=== PATIENT | female | born 1945 | race Hispanic/Latino ===

== ENCOUNTER → 2017-10-13 | Outpatient (CLI) | payer MEDICARE, BC ==
--- NOTE | 2017-10-13 12:03 | Diagnostic Imaging Report ---
PROCEDURE:X-RAY ABDOMEN - KUB COMPARISON:Abdomen one view 05/10/2017. INDICATIONS:CALCULUS OF THE KIDNEY FINDINGS: There is a non-obstructed bowel-gas pattern. Punctate calculus projects over the expected region of the interpolar region of the left kidney, stable since previous examination. There are no calcifications projected over the right renal shadow, expected course of the ureters or bladder. Phleboliths are present in the pelvis. There are no acute osseous abnormalities. The lung bases are clear. CONCLUSION: Nonobstructing left nephrolithiasis. Dictated by: Terrence Granados M.D. on 10/13/2017 at 12:05 Electronically approved by: Terrence Granados M.D. on 10/13/2017 at 12:05
== END ==
LOC: RAD 10:36
PROVIDERS: ATTEND Urology
DX: N20.0 Calculus of kidney (principal)
CPT/HCPCS: 74018

== ENCOUNTER 2020-02-13 08:39 | Emergency (ER) | payer MEDICARE, BC ==
[~2020-02-13] VITALS: Ht 167.6 cm; Wt 99.8 kg
--- NOTE | 2020-02-13 08:55 | Emergency Department Note ---
History of Present Illnes History of Present Illness Chief Complaint: Flank Pain History of Present Illness This is a 74 year old female Chief Complaint Comment PATIENT IN FROM [facility] WITH COMPLAINTS OF RIGHT FLANK PAIN STARTING THIS MORNING; DENIES PAIN WITH URINATION OR BLOOD IN URINE, APPEARS IN NO DISTRESS, RATES PAIN 10/10; PATIENT STATES THAT SHE HAS A HISTORY OF KIDNEY STONES. Historian: Patient Arrival Mode: Car Health Services Administrator Required: No Onset (how long ago): hour(s) (3) Location: R flank Quality: Sharp Radiation: Reports non-radiation Severity: moderate Onset quality: sudden Duration (how long): hour(s) (3) Timing of current episode: constant Progression: unchanged Chronicity: recurrent (episode last year) Context: Denies recent illness, Denies recent surgery Relieving factors: none Exacerbating factors: none Associated symptoms: Reports denies other symptoms Treatments prior to arrival: none Past Medical/Family History Physician Review I have reviewed the patient's past medical and family history. Any updates have been documented here. Past Medical History Recent Fever: No Clinical Suspicion of Infectio: No New/Unexplained Change in Ment: No Past Medical History: Hypertension, Kidney Stones Past Surgical History: None Social History Physically hurt or threatened: No Review of Systems Review of Systems Constitutional: Reports no symptoms EENTM: Reports no symptoms Cardiovascular: Reports no symptoms Respiratory: Reports no symptoms Gastrointestinal: Reports no symptoms Genitourinary: Reports no symptoms, Reports other (R flank pain) Musculoskeletal: Reports no symptoms Integumentary: Reports no symptoms Neurological: Reports no symptoms Psychological: Reports no symptoms Endocrine: Reports no symptoms Hematological/Lymphatic: Reports no symptoms Physical Exam Related Data Allergies: Coded Allergies: No Known Allergies (Unverified , 02/13/20) Triage Vital Signs Vital Signs Date Time Temp Pulse Resp B/P (MAP) Pulse Ox O2 Delivery O2 Flow Rate FiO2 02/13/20 08:41 97.9 82 16 222/98 98 Room Air Vital signs reviewed: Yes Physical Exam CONSTITUTIONAL Constitutional: Present well-developed, Present well-nourished HENT HENT: Present normocephalic, Present atraumatic, Present oropharynx clear/moist, Present nose normal HENT L/R: Present left ext ear normal, Present right ext ear normal EYES Eyes: Reports PERRL, Reports conjunctivae normal NECK Neck: Present ROM normal PULMONARY Pulmonary: Present effort normal, Present breath sounds normal CARDIOVASCULAR Cardiovascular: Present regular rhythm, Present heart sounds normal, Present capillary refill normal, Present normal rate GASTROINTESTINAL Abdominal: Present soft, Present nontender, Present bowel sounds normal GENITOURINARY Genitourinary: Present exam deferred SKIN Skin: Present warm, Present dry MUSCULOSKELETAL Musculoskeletal: Present ROM normal NEUROLOGICAL Neurological: Present alert, Present oriented x 3, Present no gross motor or sensory deficits PSYCHOLOGICAL Psychological: Present mood/affect normal, Present judgement normal Results Laboratory Lab results reviewed: Yes Assessment & Plan Medical Decision Making MDM 74-year-old female with a past medical history significant for hypertension and presents the emergency department for right-sided flank pain. Initial differential significant for nephrolithiasis versus functional abdominal pain versus cholecystitis vs AAA among others. Examination shows no significant abdominal tenderness and is otherwise unremarkable except for some hypertension. She was given fentanyl for pain. Labs and workup including CT shows gallstones. GB US shows cholelithiasis, no cholecystitis. Doubt emergent process at this time. I discussed results patient as well as expected disease time course and management. They will follow up with their primary care provider or return to the emergency department for new or worsening symptoms. Patient's appropriate for discharge. Part of this note was dictated with Jonnie and is subject to recognition errors. Reassessment Reassessment time: 09:08 Reassessment Well appearing, NAD Assessment & Plan Final Impression: (1) Cholelithiases Depart Disposition: HOME, SELF-CARE Last Vital Signs Date Time Temp Pulse Resp B/P (MAP) Pulse Ox O2 Delivery O2 Flow Rate FiO2 02/13/20 08:41 97.9 82 16 222/98 98 Room Air BLAIRE BROOKS MD Feb 13, 2020 08:55
[2020-02-13] MEDS ORDERED: SODIUM CHLORIDE 0.9% 1000ML 1,000 ML IV SCH (09:00)
[2020-02-13] MEDS ORDERED: ONDANSETRON HCL INJ 2MG/ML 2ML 2 MG/ML VIAL IV PRN (09:00)
[2020-02-13] MEDS ORDERED: FENTANYL CITRATE/PF 100MCG/2 ML INJ IV PRN (09:00)
--- NOTE | 2020-02-13 09:07 | NUR ---
BP 222/92. PATIENT TOOK SCHEDULED [place] THIS AM
[2020-02-13 09:19] LABS: BASOPHILS % 0.6 % (0.0-1.0); EOSINOPHILS # (AUTO) 0.2 (0.0-0.4); EOSINOPHILS % 2.4 % (0.0-6.0); HEMATOCRIT 49.4 % (34.2-44.1); HEMOGLOBIN 15.9 g/dL (12.0-16.0); LYMPHOCYTES # (AUTO) 1.8 (1.0-3.2); LYMPHOCYTES % 27.8 % (18.0-39.1); MEAN CORPUSCULAR HEMOGLOBIN 29.1 pg (28-32); MEAN CORPUSCULAR HGB CONC 32.2 g/dL (31-35); MEAN CORPUSCULAR VOLUME 90.3 fL (81-99); MONOCYTES # (AUTO) 0.6 (0.2-0.8); MONOCYTES % 10.2 % (4.4-11.3); NEUTROPHILS # (AUTO) 3.7 (2.1-6.9); NEUTROPHILS % 58.5 % (38.7-80.0); PLATELET COUNT 289 x10e3/uL (140-360); RED BLOOD COUNT 5.47 x10e6/uL (3.6-5.1); RED CELL DISTRIBUTION WIDTH 13.2 % (11.7-14.4)
--- OUTSIDE RECORDS SUMMARY | 2020-02-13 09:34 | XMS REPORT | Clinical Summary ---
Author Author [facility] Organization [facility] Address Unknown Phone Unavailable Care Team Providers Care Curriculum Designer Name Role Phone Michelle Skinner DO PCP Allergies Comments Active Allergy Reactions Severity Noted Date Iodine And Iodide 02/26/2016 Containing Products Penicillins 02/26/2016 Medications End Date Status Medication Sig Dispensed Refills Start Date Active clonIDINE (CATAPRES) 0.1 0 MG tablet 6 Active losartan (COZAAR) 100 MG 0 tablet 6 Active BYSTOLIC 20 mg tablet 0 6 Active Problems Not on file Social History Date Tobacco Use Types Packs/Day Years Used Never Smoker Drinks/Week oz/Week Comments Alcohol Use No Sex Assigned at Date Recorded Not on file Industry Job Start Date Occupation Not on file Not on file Not on file Travel End Travel History Travel Start No recent travel history available. Last Filed Vital Signs Not on file Plan of Treatment Health Maintenance Due Date Last Done Comments BREAST CANCER SCREENING 1995 COLONOSCOPY SCREENING 1995 SHINGLES VACCINES (#1) 1995 65+ PNEUMOCOCCAL VACCINE 2010 (1 of 2 - PCV13) INFLUENZA VACCINE 03/21/2020 Results Not on fileafter 02/12/2019 Insurance Type Payer Benefit Subscriber ID Effective Phone Address Plan / Dates Group Medicare MEDICARE MEDICARE xxxxxxxxxx [id number] [place], PART [place] AND resent [place] B PPO BCBS BCBS xxxxxxxxxxxx 2014-P CHOICE resent PPO/ANGELA TYLER PPO Advance Directives For more information, please contact: [phone] Patient Multimedia Designer Explanation Type Date Recorded Advance Directives, Living Will and Medical Power of Financial Accountant
--- OUTSIDE RECORDS SUMMARY | 2020-02-13 09:35 | XMS REPORT | Continuity of Care Document ---
Author Author [employer] Address Unknown Phone Unavailable Care Team Providers Care Chief Executive Name Role Phone [employer] Unavailable Un available Problems Problem Status Onset Date Classification Date Reported Comments Source DX: M25.562= PAIN IN LEFT KNEE Active 09/04/2016 [facility] Edema Active Problem 08/10/2017 [facility] Disorder of kidney and ureter Active Problem 03/2017 [facility] Esophageal reflux Active Problem 08/10/2017 [facility] Essential hypertension Active Diagnosis 08/10/2017 [facility] CKD (chronic kidney disease), stage 3 (moderate) Active Problem 08/10/2017 [facility] Hyperlipidemia, unspecified hyperlipidemia type Active Problem 08/10/2017 [facility] DDD (degenerative disc disease), lumbar Active Problem 08/10/2017 [facility] Type 2 diabetes mellitus without complications Active Problem 08/10/2017 [facility] Mixed hyperlipidemia Active Problem 03/30/2017 [facility] Osteopenia Active Problem 08/10/2017 [facility] Screening for colon cancer Act veena Diagnosis 0 12/02/2016 [facility] Screening for breast cancer Ac tive Diagnosis 0 12/02/2016 [facility] Hair loss Active Diagnosis 03/30/2017 [facility] Right hip pain Active Diagnosis 03/30/2017 [facility] Right wrist pain Active Diagnosis 03/30/2017 [facility] Hoarse Active Diagnosis 06/08/2017 [facility] Urinary tract infection Active Diagnosis 01/04/2016 [facility] Gout Active Diagnosis 01/04/2016 [facility] Elevated serum creatinine Acti ve Diagnosis 0 01/04/2016 [facility] Left knee pain, unspecified chronicity Active Diagnosis 09/04/2016 [facility] Frequency of urination Active Diagnosis 05/01/2016 [facility] Left hip pain Active Diagnosis 06/18/2016 [facility] Abnormal urinalysis Active Diagnosis 06/18/2016 [facility] Acute left-sided low back pain without sciatica Active Diagnosis 06/18/2016 [facility] Acute pain of left knee Active Diagnosis 09/04/2016 [facility] BACK PAIN Active [facility] KNEE PAIN LBP Active [facility] PAIN IN LEFT KNEE Active [facility] Medications Medication Details Route Status Patient Instructions Ordering Provider Order Date Source Cyclobenzaprine HCl 1 tablet a s needed Orally Active 10 mg Orally Three times a day Kevin 06/01/2017 [facility] Tylenol/Codeine #3 1 tablet as needed Orally Active 300-30 MG Orally once daily as needed [place] 08/28/2016 [facility] Macrobid 1 capsule with food Orally Active 100 MG Orally every 12 hrs Kamari 06/12/2016 [facility] Tramadol HCl 1/2 tablet as nee ded Orally Active 50 MG Orally as needed daily Kamari 06/12/2016 [facility] Cipro 1 tablet Orally Active 250 MG Orally every 12 hrs Roger 04/29/2016 [facility] Cipro 1 tablet Orally Active 250 MG Orally every 12 hrs Kamari 12/16/2015 [facility] Clonidine HCl 1 tablet Orally Active 0.1 MG Orally as needed when blood pressure exceeds 140/90 daily Ariel Franco 07/03/2015 [facility] Pravastatin Sodium 1 tablet Orally Active 40 mg Orally Once a day [place] 07/03/2015 [facility] Clonidine HCl 1 tablet Orally Active 0.1 MG Orally as needed when blood pressure exceeds 140/90 daily [place] 07/03/2015 [facility] Bystolic 1/2 tablet Orally Active 20 mg Orally once a day [place] 06/19/2015 [facility] Bystolic 1/2 tablet Orally Active 20 mg Orally once a day [place] 06/19/2015 [facility] OneTouch Ultra Test as directe d 250.00 In Vitro Active 1 In Vitro use QD Kamari 03/20/2014 [facility] Super B Complex not defined Orally Active Orally Kamari Elijah [facility] Multivitamin not defined Orally Active Orally Kevin Clarke [facility] Hair Vitamins not defined Orally Active Orally Kamari Eli[facility] CoQ-10 1 capsule with a meal Orally Active 30 MG Orally Once a day [place] [facility] Glucosamine Chondr 500 Complex not defined Orally Active Orally Kamari [facility] Magnesium 1 tablet with a meal Orally Active 250 MG Orally Once a day Kamari [facility] Arginine not defined Orally Active 500 MG Orally Kamari [facility] Vitamin C 1 tablet Orally Active Orally Once a day Kevin Clarke [facility] Bystolic 1 tablet by mouth Active 20MG by mouth Once a da y Kevin [facility] Vitamin D 1 tablet Orally Active 1000 UNIT Orally Once a day [facility] Biotin 5000 1 capsule Orally Active 5 MG Orally Once a day [place] [facility] Zinc 1 tablet Orally Active Orally Once a day Kevin Clarke [facility] Vitamin E 1 capsule Orally Active Orally Once a day Kamari [facility] Losartan Potassium 1 tablet Orally Active 100 MG Orally Once a day when BP greater than 140/[facility] iron 1 tab O ral Active Oral [place]n [facility] Super B Complex not defined Orally Active Orally Kevin Clarke [facility] Arginine not defined Orally Active 500 MG Orally Kevin Clarke [facility] Hair Vitamins not defined Orally Active Orally Kevin Clarke [facility] Losartan Potassium 1 tablet Orally Active 100 MG Orally Once a day when BP greater than 140/90 Kevin [facility] Magnesium 1 tablet with a meal Orally Active 250 MG Orally Once a day Kevin [facility] Vitamin E 1 capsule Orally Active Orally Once a day Kevin Clarke [facility] Vitamin D 1 tablet Orally Active 1000 UNIT Orally Once a day Kevin [facility] CoQ-10 1 capsule with a meal Orally Active 30 MG Orally Once a day Kevin [facility] Biotin 5000 1 capsule Orally Active 5 MG Orally Once a day Kevin [facility] Glucosamine Chondr 500 Complex not defined Orally Active Orally Kevin [facility] Losartan Potassium 1 tablet Orally Active 50 MG Orally Once a day Kevin [facility] Clonidine HCl 1 tablet Orally Active 0.1 MG Orally as needed when blood pressure exceeds 140/90 daily Kevin [facility] Aspir-81 1 tablet Orally Active 81 MG Orally Once a day [facility] Zinc 1 tablet Orally Active Orally Once a day [facility] iron 1 tab O [facility]al [facility] Vitamin C 1 tablet Orally Active Orally Once a day [facility] Allergies, Adverse Reactions, Alerts Substance Category Reaction Severity Reaction type Status Date Reported Comments Source penicillin Adverse Reaction Info Not Available Adverse Reaction Active 06/01/2017 [facility] iv contrast Adverse Reaction swelling Adverse Reaction Active 06/01/2017 [facility] penicillins Assertion Drug allergy Active [facility] Immunizations No Data Provided for This Section Results No Data Provided for This Section Pathology Reports No Data Provided for This Section Diagnostic Reports Report Value Date Source Knee wo contrast MRI EXAM: MRI of the left knee without contrast INDICATION: M25.562 LT KNEE PAIN, UNSP CHRONICITY COMPARISON: Plain films of the bilateral knees from 04/17/2010 TECHNIQUE: Multiplanar, multisequence magnetic resonance imaging of the left knee was performed without the administration of intravenous gadolinium contrast. FINDINGS: Intercondylar notch: Anterior cruciate ligament and posterior cruciate ligament are intact. Medial compartment: Full-thickness radial tear of the medial meniscus posterior root at the junction is seen with mild peripheral extrusion of the body. Intrasubstance degeneration throughout the medial meniscus posterior body and posterior horn is seen. Low-grade partial-thickness cartilage fissuring along the central weightbearing portion of the medial femoral condyle as well as medial tibial plateau is noted. Medial collateral ligament is intact. Lateral compartment: No meniscal tear is seen. Low-grade partial-thickness cartilage fissuring along the lateral tibial plateau is noted. Lateral collateral ligament complex is intact. Posterolateral corner structures are intact. Patellofemoral compartment: Diffuse high-grade partial to full-thickness cartilage fissures with extensive underlying cystic changes along the superior patella are noted. Extensor mechanism: Quadriceps and patellar tendons are intact. Other findings: Large joint effusion is seen. Mild edema throughout the anterior circumferential soft tissues of the knee is seen. [place] hyperintense signal abnormality in the visualized distal biceps femoris myotendinous junction is seen, suspicious for low-grade strain. IMPRESSION: 1. Complete radial tear of the medial me niscus posterior root with mild peripheral extrusion of the body. 2. Low-grade chondrosis of the central w eightbearing portion of the medial femoral condyle and medial tibial plateau. 3. Low-grade chondrosis of the lateral t ibial plateau. 4. High-grade chondrosis with extensive underlying subchondral cystic change throughout the superior patella. 5. Large joint effusion. 6. Findings suspicious for low-grade str ain of the distal biceps femoris myotendinous junction. SL: WR4-M 09/09/2016 [facility] Consultation Notes No Data Provided for This Section Discharge Summaries No Data Provided for This Section History and Physicals No Data Provided for This Section Vital Signs Vital Sign Value Date Comments Source Weight 204 06/01/2017 [facility] Height 64 1 08/02/2016 [facility] Heart Rate 65 06/01/2017 [facility] Diastolic (mm Hg) 76 06/01/2017 [facility] Systolic (mm Hg) 160 06/01/2017 [facility] Weight 199 03/26/2017 [facility] Height 64 1 [facility] Heart Rate 58 03/26/2017 [facility] Diastolic (mm Hg) 80 03/26/2017 [facility] Systolic (mm Hg) 120 03/26/2017 [facility] Weight 200 11/27/2016 [facility] Height 64 0 11/27/2016 [facility] Heart Rate 66 11/27/2016 [facility] Diastolic (mm Hg) 68 11/27/2016 [facility] Systolic (mm Hg) 128 11/27/2016 [facility] Weight 200 08/28/2016 [facility] Height 64 0 08/28/2016 [facility] Heart Rate 68 08/28/2016 [facility] Diastolic (mm Hg) 82 08/28/2016 [facility] Systolic (mm Hg) 120 08/28/2016 [facility] Weight 191 06/12/2016 [facility] Height 64 1 2015 [facility] Heart Rate 60 06/12/2016 [facility] Diastolic (mm Hg) 80 06/12/2016 [facility] Systolic (mm Hg) 135 06/12/2016 [facility] Weight 191 06/04/2016 [facility] Height 64 1 08/05/2015 [facility] Heart Rate 68 06/04/2016 [facility] Diastolic (mm Hg) 82 06/04/2016 [facility] Systolic (mm Hg) 120 06/04/2016 [facility] Weight 200 04/29/2016 [facility] Height 64 1 06/29/2015 [facility] Heart Rate 60 04/29/2016 [facility] Diastolic (mm Hg) 70 04/29/2016 [facility] Systolic (mm Hg) 120 04/29/2016 [facility] Weight 204 03/12/2016 [facility] Height 64 0 03/12/2016 [facility] Heart Rate 63 03/12/2016 [facility] Diastolic (mm Hg) 80 03/12/2016 [facility] Systolic (mm Hg) 122 03/12/2016 [facility] Weight 213 01/01/2016 [facility] Height 64 0 01/01/2016 [facility] Heart Rate 68 01/01/2016 [facility] Diastolic (mm Hg) 89 01/01/2016 [facility] Systolic (mm Hg) 135 01/01/2016 [facility] Weight 216 12/16/2015 [facility] Height 64 0 12/16/2015 [facility] Heart Rate 68 12/16/2015 [facility] Diastolic (mm Hg) 74 12/16/2015 [facility] Systolic (mm Hg) 140 12/16/2015 [facility] Encounters Location Location Details Encounter Type Encounter Number Reason For Visit Attending Provider ADM Date DC Date Status Source [facility] Follow-Up [id number] 04/06/2013 04/06/2013 [facility] Follow-Up [id number] 04/06/2013 04/06/2013 [facility] Follow-Up [id number] 04/06/2013 04/06/2013 [facility] Follow-Up [id number] 04/06/2013 04/06/2013 [facility] Follow-Up [id number] 04/06/2013 04/06/2013 [facility] Follow-Up [id number] 04/06/2013 04/06/2013 [facility] Follow-Up [id number] 04/06/2013 04/06/2013 [facility] Unknown [id number] 04/12/2013 04/12/2013 [facility] Unknown [id number] 04/12/2013 04/12/2013 [facility] Unknown [id number] 04/12/2013 04/12/2013 [facility] Unknown [id number] 04/12/2013 04/12/2013 [facility] Unknown [id number] 04/12/2013 04/12/2013 [facility] Unknown [id number] 04/12/2013 04/12/2013 [facility] Unknown [id number] 04/12/2013 04/12/2013 [facility] Test results [id number] 04/14/2013 04/14/2013 [facility] Test results [id number] 04/14/2013 04/14/2013 [facility] Test results [id number] 04/14/2013 04/14/2013 [facility] Test results [id number] 04/14/2013 04/14/2013 [facility] Test results [id number] 04/14/2013 04/14/2013 [facility] Test results [id number] 04/14/2013 04/14/2013 [facility] Test results [id number] 04/14/2013 04/14/2013 [facility] recheck Urine [id number] 04/20/2013 04/20/2013 [facility] recheck Urine [id number] 04/20/2013 04/20/2013 [facility] recheck Urine [id number] 04/20/2013 04/20/2013 [facility] recheck Urine [id number] 04/20/2013 04/20/2013 [facility] recheck Urine [id number] 04/20/2013 04/20/2013 [facility] recheck Urine [id number] 04/20/2013 04/20/2013 [facility] recheck Urine [id number] 04/20/2013 04/20/2013 [facility] Test results [id number] 04/27/2013 04/27/2013 [facility] Test results [id number] 04/27/2013 04/27/2013 [facility] Test results [id number] 04/27/2013 04/27/2013 [facility] Test results [id number] 04/27/2013 04/27/2013 [facility] Test results [id number] 04/27/2013 04/27/2013 [facility] Test results [id number] 04/27/2013 04/27/2013 [facility] Test results [id number] 04/27/2013 04/27/2013 [facility] dizzy, vomitting [id number] 06/12/2013 06/12/2013 [facility] dizzy, vomitting [id number] 06/12/2013 06/12/2013 [facility] dizzy, vomitting [id number] 06/12/2013 06/12/2013 [facility] dizzy, vomitting [id number] 06/12/2013 06/12/2013 [facility] dizzy, vomitting [id number] 06/12/2013 06/12/2013 [facility] dizzy, vomitting [id number] 06/12/2013 06/12/2013 [facility] dizzy, vomitting [id number] 06/12/2013 06/12/2013 [facility] Unknown [id number] 06/12/2013 06/12/2013 [facility] Unknown [id number] 06/12/2013 06/12/2013 [facility] Unknown [id number] 06/12/2013 06/12/2013 [facility] Unknown [id number] 06/12/2013 06/12/2013 [facility] Unknown [id number] 06/12/2013 06/12/2013 [facility] Unknown [id number] 06/12/2013 06/12/2013 [facility] Unknown [id number] 06/12/2013 06/12/2013 [facility] Test Results [id number] 06/29/2013 06/29/2013 [facility] Test Results [id number] 06/29/2013 06/29/2013 [facility] Test Results [id number] 06/29/2013 06/29/2013 [facility] Test Results [id number] 06/29/2013 06/29/2013 [facility] Test Results [id number] 06/29/2013 06/29/2013 [facility] Test Results [id number] 06/29/2013 06/29/2013 [facility] [facility] Test Results [id number] 06/29/2013 06/29/2013 [facility] Follow-Up [id number] 07/07/2013 07/07/2013 [facility] Follow-Up [id number] 07/07/2013 07/07/2013 [facility] Follow-Up [id number] 07/07/2013 07/07/2013 [facility] Follow-Up [id number] 07/07/2013 07/07/2013 [facility] Follow-Up [id number] 07/07/2013 07/07/2013 [facility] Follow-Up [id number] 07/07/2013 07/07/2013 [facility] Follow-Up [id number] 07/07/2013 07/07/2013 [facility] Unknown [id number] 10/23/2013 10/23/2013 [facility] Unknown [id number] 10/23/2013 10/23/2013 [facility] Unknown [id number] 10/23/2013 10/23/2013 [facility] Unknown [id number] 10/23/2013 10/23/2013 [facility] Unknown [id number] 10/23/2013 10/23/2013 [facility] Unknown [id number] 10/23/2013 10/23/2013 [facility] Unknown [id number] 10/23/2013 10/23/2013 [facility] Unknown [id number] 12/04/2013 12/04/2013 [facility] Unknown [id number] 12/04/2013 12/04/2013 [facility] Unknown [id number] 12/04/2013 12/04/2013 [facility] Unknown [id number] 12/04/2013 12/04/2013 [facility] Unknown [id number] 12/04/2013 12/04/2013 [facility] Unknown [id number] 12/04/2013 12/04/2013 [facility] Unknown [id number] 12/04/2013 12/04/2013 [facility] refill [id number] 12/15/2013 12/15/2013 [facility] refill [id number] 12/15/2013 12/15/2013 [facility] refill [id number] 12/15/2013 12/15/2013 [facility] refill [id number] 12/15/2013 12/15/2013 [facility] refill [id number] 12/15/2013 12/15/2013 [facility] refill [id number] 12/15/2013 12/15/2013 [facility] refill [id number] 12/15/2013 12/15/2013 [facility] medication refill [id number] 03/20/2014 03/20/2014 [facility] medication refill [id number] 03/20/2014 03/20/2014 [facility] medication refill [id number] 03/20/2014 03/20/2014 [facility] medication refill [id number] 03/20/2014 03/20/2014 [facility] medication refill [id number] 03/20/2014 03/20/2014 [facility] medication refill [id number] 03/20/2014 03/20/2014 [facility] medication refill [id number] 03/20/2014 03/20/2014 [facility] OP Therapy Patients [id number] Ingrid Skinner 04/18/2014 05/18/2014 [facility] Unknown [id number] 05/01/2014 05/01/2014 [facility] Unknown [id number] 05/01/2014 05/01/2014 [facility] Unknown [id number] 05/01/2014 05/01/2014 [facility] Unknown [id number] 05/01/2014 05/01/2014 [facility] Unknown [id number] 05/01/2014 05/01/2014 [facility] Unknown [id number] 05/01/2014 05/01/2014 [facility] Unknown [id number] 05/01/2014 05/01/2014 [facility] Unknown [id number] 01/18/2015 01/18/2015 [facility] Unknown [id number] 01/18/2015 01/18/2015 [facility] Unknown [id number] 01/18/2015 01/18/2015 [facility] Unknown [id number] 01/18/2015 01/18/2015 [facility] Unknown [id number] 01/18/2015 01/18/2015 [facility] Unknown [id number] 01/18/2015 01/18/2015 [facility] Unknown [id number] 01/18/2015 01/18/2015 [facility] Unknown [id number] 05/10/2015 05/10/2015 [facility] Unknown [id number] 05/10/2015 05/10/2015 [facility] Unknown [id number] 05/10/2015 05/10/2015 [facility] Unknown [id number] 05/10/2015 05/10/2015 [facility] Unknown [id number] 05/10/2015 05/10/2015 [facility] Unknown [id number] 05/10/2015 05/10/2015 [facility] Unknown [id number] 05/10/2015 05/10/2015 [facility] Unknown [id number] 06/19/2015 06/19/2015 [facility] Unknown [id number] 06/19/2015 06/19/2015 [facility] Unknown [id number] 06/19/2015 06/19/2015 [facility] Unknown [id number] 06/19/2015 06/19/2015 [facility] Unknown [id number] 06/19/2015 06/19/2015 [facility] Unknown [id number] 06/19/2015 06/19/2015 [facility] Unknown [id number] 06/19/2015 06/19/2015 [facility] Needs call back from Medical Staff [id number] 06/19/2015 06/19/2015 [facility] Needs call back from Medical Staff [id number] 06/19/2015 06/19/2015 [facility] Needs call back from Medical Staff [id number] 06/19/2015 06/19/2015 [facility] Needs call back from Medical Staff [id number] 06/19/2015 06/19/2015 [facility] Needs call back from Medical Staff [id number] 06/19/2015 06/19/2015 [facility] Needs call back from Medical Staff [id number] 06/19/2015 06/19/2015 [facility] Needs call back from Medical Staff [id number] 06/19/2015 06/19/2015 [facility] Unknown [id number] 06/25/2015 06/25/2015 [facility] Unknown [id number] 06/25/2015 06/25/2015 [facility] Unknown [id number] 06/25/2015 06/25/2015 [facility] Other [id number] 06/25/2015 06/25/2015 [facility] Other [id number] 06/25/2015 06/25/2015 [facility] Other [id number] 06/25/2015 06/25/2015 [facility] Unknown [id number] 06/25/2015 06/25/2015 [facility] Unknown [id number] 06/25/2015 06/25/2015 [facility] Unknown [id number] 06/25/2015 06/25/2015 [facility] Unknown [id number] 06/25/2015 06/25/2015 [facility] Other [id number] 06/25/2015 06/25/2015 [facility] Other [id number] 06/25/2015 06/25/2015 [facility] Other [id number] 06/25/2015 06/25/2015 [facility] Other [id number] 06/25/2015 06/25/2015 [facility] OP Therapy Patients [id number] Ingrid Skinner 07/11/2015 08/10/2015 [facility] Unknown [id number] 12/16/2015 12/16/2015 [facility] Unknown [id number] 12/16/2015 12/16/2015 [facility] Unknown [id number] 12/16/2015 12/16/2015 [facility] Unknown [id number] 12/16/2015 12/16/2015 [facility] Unknown [id number] 12/16/2015 12/16/2015 [facility] Unknown [id number] 12/16/2015 12/16/2015 [facility] Unknown [id number] 12/16/2015 12/16/2015 [facility] 2 week follow up [id number] 01/01/2016 01/01/2016 [facility] 2 week follow up [id number] 01/01/2016 01/01/2016 [facility] 2 week follow up [id number] 01/01/2016 01/01/2016 [facility] 2 week follow up [id number] 01/01/2016 01/01/2016 [facility] 2 week follow up [id number] 01/01/2016 01/01/2016 [facility] 2 week follow up [id number] 01/01/2016 01/01/2016 [facility] blood pressure low [id number] 03/12/2016 03/12/2016 [facility] blood pressure low [id number] 03/12/2016 03/12/2016 [facility] blood pressure low [id number] 03/12/2016 03/12/2016 [facility] blood pressure low [id number] 03/12/2016 03/12/2016 [facility] blood pressure low [id number] 03/12/2016 03/12/2016 [facility] possible bladder inf [id number] 04/29/2016 04/29/2016 [facility] possible bladder inf [id number] 04/29/2016 04/29/2016 [facility] possible bladder inf [id number] 04/29/2016 04/29/2016 [facility] possible bladder inf [id number] 04/29/2016 04/29/2016 [facility] 3 month follow up [id number] 06/04/2016 06/04/2016 [facility] 3 month follow up [id number] 06/04/2016 06/04/2016 [facility] 3 month follow up [id number] 06/04/2016 06/04/2016 [facility] LEFT HIP PAIN [id number] 06/12/2016 06/12/2016 [facility] LEFT HIP PAIN [id number] 06/12/2016 06/12/2016 [facility] Unknown [id number] 07/09/2016 07/09/2016 [facility] Outpatient [id number] Ingrid Skinner 09/09/2016 09/10/2016 [facility] Procedures No Data Provided for This Section Assessment and Plan No Data Provided for This Section Plan of Care No Data Provided for This Section Social History Social History Date Source No data available for this section 09/10/2016 [facility] Social History ElementQualifiersDate Rep orted Depression Screening: . negative 03/20/14 Jun 12, 2016 Ethnicity . Status , Is kinyarwanda your brayden ingrid language? Yes Jun 12, 2016 children . None Jun 12, 2016 Tobacco Use: . Are you a: never smoker Jun 12, 2016 Flu Vaccine: . never Jun 12, 2016 Use of recreational / street drugs? . Answer: No Jun 12, 2016 Marital Status: . Jun 12, 2016 Caffeine intake? . Status: Yes, What type: Coffee Jun 12, 2016 Do you exercise? . Answer: Yes, Type: walking Jun 12, 2016 Do you drink alcohol? . Status: No Jun 12, 2016 Occupation: unemployed. Retired Jun 12, 2016 06/12/2016 [facility] No data available for this section 08/10/2015 [facility] Family History Value Date S ource QualifierDescriptionCommentDate Reported Maternal Grandmother Comment not available Jun 04, 2016 Paternal Grandmother Comment not available Jun 04, 2016 Siblings Comment not available Jun 04, 2016 Maternal Grandfather Comment not available Jun 04, 2016 Children Comment not available Jun 04, 2016 Father myocardial infarction, renal failure Jun 04, 2016 Paternal Grandfather Comment not available Jun 04, 2016 Mother diabetes, hypertension, hyperlipidemia, pneumonia Jun 04, 2016 Other: Comment not available Jun 04, 2016 06/06/2016 [facility] QualifierDescriptionCommentDate Reported Maternal Grandmother Comment not available January 01, 2016 Paternal Grandmother Comment not available January 01, 2016 Siblings Comment not available January 01, 2016 Maternal Grandfather Comment not available January 01, 2016 Children Comment not available January 01, 2016 Father myocardial infarction, renal failure January 01, 2016 Paternal Grandfather Comment not available January 01, 2016 Mother diabetes, hypertension, hyperlipidemia, pneumonia January 01, 2016 Other: Comment not available January 01, 2016 01/04/2016 [facility] Advance Directives No Data Provided for This Section Functional Status No Data Provided for This Section
--- OUTSIDE RECORDS SUMMARY | 2020-02-13 09:35 | XMS REPORT | Continuity of Care Document ---
Author Author [facility] t Organization [facility] Address [address] [place] [address] Phone Unavailable Care Team Providers Care Network Announcer Name Role Phone Michelle Skinner DO PCP GUSTAVO CHESTER Attphys Unavailable Dru Skinner Attphys Problems Condition Name Condition Details Condition Category Status Onset Date Resolution Date Last Treatment Date Treating Clinician Comments Source DX: M25.562= PAIN IN LEFT KNEE DX: M25.562= PAIN IN LEFT KNEE Active 09/04/2016 [facility] Active 2016-09-04 00:00:00 2016-09-09 13:38:00 Vitaly Marino Edema Joey a Active Problem 08/10/2017 [facility] Problem Active 2017-08-10 03:03:06 Vitaly Marino Disorder of kidney and ureter Disorder of kidney and ureter Active Problem 03/30/2017 [facility] Problem Active 2017-03-30 02:02:31 Bruce Marino Esophageal reflux Esop hageal reflux Active Problem 08/10/2017 [facility] Problem Active 2017-08-10 03:03:06 Vitaly Marino Essential hypertension Esse ntial hypertension Active Diagnosis 08/10/2017 [facility] Diagnosis Active 2017-08-10 03:03:06 Vitaly Marino CKD (chronic kidney disease), stage 3 (moderate) CKD (chronic kidney disease), stage 3 (moderate) Active Problem 08/10/2017 [facility] Problem Active 2 03:03:06 Vitaly Marino Hyperlipidemia, unspecified hyperlipidemia type Hyperlipidemia, unspecified hyperlipidemia type Active Problem 08/10/2017 [facility] Problem Active 2 03:03:06 [facility] DDD (degenerative disc disease), lumbar DDD (degenerative disc disease), lumbar Active Problem 08/10/2017 [facility] Problem Active 2017-08-10 03:03:06 V[facility]y [place] Type 2 diabetes mellitus without complications Type 2 diabetes mellitus without complications Active Problem 08/10/2017 [facility] Problem Active 2017-08-10 03:03:06 Vitaly [place] Mixed hyperlipidemia Mixe d hyperlipidemia Active Problem 03/30/2017 [facility] Problem Active 2017-03-30 02:02:31 Vitaly [place] Osteopenia Oste openia Active Problem 08/10/2017 [facility] Problem Active 2 03:03:06 Vitaly Easleyann Screening for colon cancer Scr eening for colon cancer Active Diagnosis 12/02/2016 [facility] Diagnosis Active 2016-12-02 02:00:21 [facility] Screening for breast cancer Sc reening for breast cancer Active Diagnosis 12/02/2016 [facility] Diagnosis Active 2016-12-02 02:00:21 [facility] Hair loss Hair loss Active Diagnosis 03/30/2017 [facility] Diagnosis Active 2017-03-30 02:02:31 Vitaly Ned Right hip pain Righ t hip pain Active Diagnosis 03/30/2017 [facility] Diagnosis Active 2017-03-30 02:02:31 Vitaly Marino Right wrist pain Righ t wrist pain Active Diagnosis 03/30/2017 [facility] Diagnosis Active 2017-03-30 02:02:31 Vitaly Marino Hoarse Hoar se Active Diagnosis 06/08/2017 [facility] Diagnosis Active 2017-06-08 03:02:54 Vitaly Marino Urinary tract infection Urin lesli tract infection Active Diagnosis 01/04/2016 [facility] Diagnosis Active 2016-01-04 02:00:17 Vitaly Marino Gout Gout Active Diagnosis 01/04/2016 [facility] Diagnosis Active 2016-01-04 02:00:17 Vitaly Marino Elevated serum creatinine Elev ated serum creatinine Active Diagnosis 01/04/2016 [facility] Diagnosis Active 2016-01-04 02:00:17 [facility] [place] Left knee pain, unspecified chronicity Left knee pain, unspecified chronicity Active Diagnosis 09/04/2016 [facility] Diagnosis Active 2016-09-04 02:08:25 Me leonel Easleyann Frequency of urination Freq uency of urination Active Diagnosis 05/01/2016 [facility] Diagnosis Active 2016-05-01 03:09:41 Vitaly Marino Left hip pain Left hip pain Active Diagnosis 06/18/2016 [facility] Diagnosis Active 2016-06-18 03:05:09 Vitaly Marino Abnormal urinalysis Abno rmal urinalysis Active Diagnosis 06/18/2016 [facility] Diagnosis Active 2016-06-18 03:05:09 Vitaly Marino Acute left-sided low back pain without sciatica Acute left-sided low back pain without sciatica Active Diagnosis 06/18/2016 [facility] Diagnosis Active 2016-06-18 03:05:09 Vitaly Marino BACK PAIN BACK PAIN Active [facility] Diagnosis Active 2014-04-19 12:31:00 Me leonel Marino KNEE PAIN LBP KNEE PAIN LBP Active [facility] Diagnosis Active 2015-07-15 10:15:00 Vitaly Marino PAIN IN LEFT KNEE PAIN IN LEFT KNEE Active [facility] Diagnosis Active 2016-09-09 13:38:00 Vitaly Marino Allergies, Adverse Reactions, Alerts Allergy Name Allergy Type Status Severity Reaction(s) Onset Date Inacti ve Date Treating Clinician Comments Source penicillin penicillin Active Info Not Available 2017-06-01 00:00:0 0 Vitaly Marino iv contrast iv contrast Active swelling 2017-06-01 00:00:00 Vitaly Marino Iodine And Iodide Containing Products Propensity to adverse reactions to drug Active 2016-02-26 00:00:00 Lorne Laura Penicillins Propensity to adverse reactions to drug Active 2016-02-26 00:00:00 Lorne gallagher penicillins penicillins Active V[facility] Marino Family History Family Member Diagnosis Comments Start Date Stop Date Source Unknown Family Member Family History 2016-01-04 02:00:17 2 02:00:17 Vitaly Marino Social History Social Habit Start Date Stop Date Quantity Comments Source Sex Assigned At Rosalio Laura DepressionScreenin2016-06-12 00:00:00 2016-06-12 00:00:00 [facility] Alcohol intake 2016-02-26 00:00:00 2016-02-26 00:00:00 Current non-drinker of alcohol (finding) Lorne Cohenist Social History 2015-08-10 05:59:00 2015-08-10 05:59:00 [facility] Smoking Status Start Date Stop Date Source Never smoker Lorne gallagher Medications Ordered Medication Name Filled Medication Name Start Date Stop Da te Current Medication? Ordering Clinician Indication Dosage Frequency Signature (SIG) Comments Components Source Bystolic 2017-08-10 03:03:06 Yes Laurent Brown 1 tablet [facility] Multivitamin 2017-06-08 03:02:54 Yes Laurent Brown not defined [facility] [place] Vitamin C 2017-06-08 03:02:54 Yes Laurent Brown 1 tablet [facility] Zinc 2017-06-08 03:02:54 Yes Laurent Brown 1 tabl et [facility] [place] iron 2017-06-08 03:02:54 Yes Laurent Brown 1 tab [facility] Super B Complex 2017-06-08 03:02:54 Yes Laurent Brown not defined [facility] [place] Arginine 2017-06-08 03:02:54 Yes Lauretn Brwon no t defined [facility] [place] Hair Vitamins 2017-06-08 03:02:54 Yes Laurent Brown not defined [facility] Losartan Potassium 2017-06-08 03:02:54 Yes Laurent Brown 1 tablet [facility] Magnesium 2017-06-08 03:02:54 Yes Laurent Brown 1 tablet with a meal [facility] Vitamin E 2017-06-08 03:02:54 Yes Laurent Brown 1 capsule [facility] Vitamin D 2017-06-08 03:02:54 Yes Laurent Brown 1 tablet [facility] CoQ-10 2017-06-08 03:02:54 Yes Laurent Brown 1 capsule with a meal [facility] Biotin 5000 2017-06-08 03:02:54 Yes Laurent Brown 1 capsule [facility] Glucosamine Chondr 500 Complex 2017-06-08 03:02:54 Yes Coco Brown not defined [facility] Losartan Potassium 2017-06-08 03:02:54 Yes Laurent Brown 1 tablet [facility] Clonidine HCl 2017-06-08 03:02:54 Yes Laurent Brown 1 tablet [facility] [place] Aspir-81 2017-06-08 03:02:54 Yes Laurent Brown 1 tablet [facility] [place] Cyclobenzaprine HCl 2017-06-01 00:00:00 Yes Laurent Ivelisse z 1 tablet as needed [facility] Super B Complex 2016-12-02 02:00:21 Yes Betsy [place] not defined [facility] Hair Vitamins 2016-12-02 02:00:21 Yes Betsy Kamari not defined [facility] CoQ-10 2016-12-02 02:00:21 Yes Betsy [place] 1 caps ule with a meal [facility] Glucosamine Chondr 500 Complex 2016-12-02 02:00:21 Yes A nicky Kamari not defined [facility] Magnesium 2016-12-02 02:00:21 Yes Betsy Kamari 1 tablet with a meal [facility] Arginine 2016-12-02 02:00:21 Yes Betsy Kamari not defined [facility] Vitamin D 2016-12-02 02:00:21 Yes Betsy Kamari 1 t ablet [facility] Biotin 5000 2016-12-02 02:00:21 Yes Betsy [place] 1 capsule [facility] Vitamin E 2016-12-02 02:00:21 Yes Betsy Kamari 1 c apsule [facility] Losartan Potassium 2016-12-02 02:00:21 Yes Betsy Kamari 1 tablet [facility] Zinc 2016-09-04 02:01:04 Yes Betsy Kamari 1 tablet [facility] Vitamin C 2016-09-04 02:01:04 Yes Betsy Kamari 1 t ablet [facility] Tylenol/Codeine #3 2016-08-28 00:00:00 Yes Betsy Kamari 1 tablet as needed [facility] iron 2016-06-18 03:05:09 Yes Betsy Kamari 1 tab [facility] Macrobid 2016-06-12 00:00:00 Yes Betsy Kamari 1 ca psule with food [facility] Tramadol HCl 2016-06-12 00:00:00 Yes Betsy Kamari 1/2 tablet as needed [facility] Cipro 2016-04-29 00:00:00 Yes Ashley Duran 1 ta blet [facility] clonIDINE (CATAPRES) 0.1 MG tablet 2016-02-10 00:00:00 Yes Lorne Laura losartan (COZAAR) 100 MG tablet 2016-02-08 00:00:00 Yes Lorne Laura BYSTOLIC 20 mg tablet 2016-01-13 00:00:00 Yes Lorne Laura Cipro 2015-12-16 00:00:00 Yes Betsy Kamari 1 table t [facility] Clonidine HCl 2015-07-03 00:00:00 Yes Michelle Franco 1 tablet [facility] Pravastatin Sodium 2015-07-03 00:00:00 Yes Betsy [place] 1 tablet [facility] [place] Clonidine HCl 2015-07-03 00:00:00 Yes Betsy Kamari 1 tablet [facility] Bystolic 2015-06-19 00:00:00 Yes Betsy Kamari 1/2 tablet [facility] Bystolic 2015-06-19 00:00:00 Yes Ashley Roger 1 /2 tablet [facility] [place] OneTouch Ultra Test 2014-03-20 00:00:00 Yes Betsy Kamari as directed 250.00 [facility] Vital Signs Vital Name Observation Time Observation Value Comments Source Weight 2017-06-01 21:45:00 [facility] [place] Height 2017-06-01 21:45:00 [facility] Heart Rate 2017-06-01 21:45:00 [facility] [place] Diastolic (mm Hg) 2017-06-01 21:45:00 [facility] Systolic (mm Hg) 2017-06-01 21:45:00 Jerry smita [place] Weight 2017-03-26 14:15:00 [facility] Height 2017-03-26 14:15:00 [facility] Heart Rate 2017-03-26 14:15:00 [facility] [place] Diastolic (mm Hg) 2017-03-26 14:15:00 Mem [facility] [place] Systolic (mm Hg) 2017-03-26 14:15:00 Jerry rial [facility] Weight 2016-11-27 13:00:00 [facility] Height 2016-11-27 13:00:00 [facility] Heart Rate 2016-11-27 13:00:00 [facility] Diastolic (mm Hg) 2016-11-27 13:00:00 [facility] Systolic (mm Hg) 2016-11-27 13:00:00 Jerry rial [place] Weight 2016-08-28 15:30:00 [facility] Height 2016-08-28 15:30:00 [facility] Heart Rate 2016-08-28 15:30:00 [facility] [place] Diastolic (mm Hg) 2016-08-28 15:30:00 [facility] Systolic (mm Hg) 2016-08-28 15:30:00 Jerry rial [place] Weight 2016-06-12 17:00:00 [facility] Height 2016-06-12 17:00:00 [facility] Heart Rate 2016-06-12 17:00:00 [facility] Diastolic (mm Hg) 2016-06-12 17:00:00 [facility] Systolic (mm Hg) 2016-06-12 17:00:00 Jerry rial [place] Weight 2016-06-04 14:00:00 [facility] Height 2016-06-04 14:00:00 [facility] Heart Rate 2016-06-04 14:00:00 [facility] [place] Diastolic (mm Hg) 2016-06-04 14:00:00 [facility] Systolic (mm Hg) 2016-06-04 14:00:00 Jerry [facility] Weight 2016-04-29 21:15:00 [facility] [place] Height 2016-04-29 21:15:00 [facility] [place] Heart Rate 2016-04-29 21:15:00 [facility] [place] Diastolic (mm Hg) 2016-04-29 21:15:00 Mem [facility] [place] Systolic (mm Hg) 2016-04-29 21:15:00 Jerry [facility] Weight 2016-03-12 14:00:00 [facility] [place] Height 2016-03-12 14:00:00 [facility] [place] Heart Rate 2016-03-12 14:00:00 [facility] Diastolic (mm Hg) 2016-03-12 14:00:00 [facility] [place] Systolic (mm Hg) 2016-03-12 14:00:00 Jerry reinal Ned Weight 2016-01-01 13:00:00 [facility] Height 2016-01-01 13:00:00 [facility] Heart Rate 2016-01-01 13:00:00 [facility] [place] Diastolic (mm Hg) 2016-01-01 13:00:00 [facility] [place] Systolic (mm Hg) 2016-01-01 13:00:00 Jerry rial [place] Weight 2015-12-16 13:15:00 [facility] [place] Height 2015-12-16 13:15:00 [facility] [place] Heart Rate 2015-12-16 13:15:00 [facility] [place] Diastolic (mm Hg) 2015-12-16 13:15:00 [facility] [place] Systolic (mm Hg) 2015-12-16 13:15:00 Jerry Marino Procedures This patient has no known procedures. Plan of Care Planned Activity Planned Date Details Comments Source Future Scheduled Test 2020-03-21 00:00:00 INFLUENZA VACCINE [code = INFLUENZA VACCINE] [facility] Future Scheduled Test 2010 00:00:00 65+ PNEUMOCOCCAL V ACCINE (1 of 2 - PCV13) [code = 65+ PNEUMOCOCCAL VACCINE (1 of 2 - PCV13)] [facility] Future Scheduled Test 1995 00:00:00 BREAST CANCER SCRE ENING [code = BREAST CANCER SCREENING] [facility] Future Scheduled Test 1995 00:00:00 COLONOSCOPY SCREEN ING [code = COLONOSCOPY SCREENING] [facility] Future Scheduled Test 1995 00:00:00 SHINGLES VACCINES (#1) [code = SHINGLES VACCINES (#1)] [facility] Encounters Start Date/Time End Date/Time Encounter Type Admission Type Attendi [facility] Care Department Encounter ID Source 2017-08-09 14:40:00 2017-08-09 14:40:00 [id number] 2017-06-01 15:45:00 2017-06-01 15:45:00 Outpatient [facility] [id number] [facility] 2017-03-26 09:15:00 2017-03-26 09:15:00 Outpatient [facility] [id number] [facility] 2017-03-08 15:09:00 2017-03-08 15:09:00 Outpatient [facility] [id number] [facility] 2016-11-27 08:00:00 2016-11-27 08:00:00 Outpatient [facility] [id number] [facility] 2016-09-11 11:00:00 2016-09-11 11:00:00 Outpatient [facility] [id number] [facility] 2016-09-09 13:28:00 2016-09-09 23:59:00 Outpatient Michelle Govea [facility] [id number] 2016-09-09 16:17:00 2016-09-09 16:17:00 Outpatient [facility] [id number] [facility] 2016-09-02 16:11:00 2016-09-02 16:11:00 Outpatient [facility] [id number] [facility] 2016-08-28 10:30:00 2016-08-28 10:30:00 Outpatient [facility] [id number] [facility] 2016-07-09 16:48:00 2016-07-09 16:48:00 Outpatient [facility] [id number] [facility] 2016-06-12 11:00:00 2016-06-12 11:00:00 Outpatient [facility] [id number] [facility] 2016-06-04 08:00:00 2016-06-04 08:00:00 Outpatient [facility] [id number] [facility] 2016-04-29 15:15:00 2016-04-29 15:15:00 Outpatient [facility] [id number] [facility] 2016-03-12 09:00:00 2016-03-12 09:00:00 Outpatient [facility] [id number] [facility] 2016-01-01 08:00:00 2016-01-01 08:00:00 Outpatient [facility] [id number] [facility] 2015-12-16 08:15:00 2015-12-16 08:15:00 Outpatient [facility] [id number] [facility] 2015-07-11 14:42:00 2015-08-09 23:59:00 Outpatient Michelle Duarte [id number] 2014-04-18 15:35:00 2014-05-17 23:59:00 Outpatient Michelle Govea [id number] Results Test Description Test Time Test Comments Results Result Comments Source [place] [address] Patient Name: ADRIENNE SOARES MR #: [id number] : 1945 Age/Sex: 72/F Req #: [id number] Adm Physician: Ordered by: GUSTAVO CHESTER MD Report #: [id number] Location: [facility] Room/Bed: Procedure: [id number] DX/ABDOMEN-1VIEW (KUB) Exam Date: 10/13/17 Exam Time: 1050 REPORT STATUS: Signed PROCEDURE: X-RAY ABDOMEN - KUB COMPARISON: Abdomen one view 05/10/2017. INDICATIONS: CALCULUS OF THE KIDNEY FINDINGS: There is a non-obstructed bowel-gas pattern. Punctate calculus projects over the expected region of the interpolar region of the left kidney, stable since previous examination. There are no calcifications projected over the right renal shadow, expected course of the ureters or bladder. Phleboliths are present in the pelvis. There are no acute osseous abnormalities. The lung bases are clear. CONCLUSION: Nonobstructing left nephrolithiasis. Dictated by: Jaleel Arroyo M.D. on 10/13/2017 at 12:05 Electronically approved by: Jaleel Arroyo M.D. on 10/13/2017 at 12:05 Dictated By: JALEEL ARROYO MD [id number] Transcribed By: ISRAEL on 10/13/17 1205 COPY TO: GUSTAVO CHESTER MD ABDOMEN-1VIEW (KUB) [place] [address] Patient Name: ADRIENNE SOARES MR #: [id number] : 1945 Age/Sex: 71/F Req #: [id number] Adm Physician: Ordered by: GUSTAVO CHESTER MD Report #: [id number] Location: [facility] Room/Bed: Procedure: [id number] DX/ABDOMEN-1VIEW (KUB) Exam Date: 05/10/17 Exam Time: 1307 REPORT STATUS: Signed PROCEDURE: X-RAY ABDOMEN - KUB COMPARISON: [facility], DX, ABDOMEN-1VIEW (KUB), 12/02/2016, 14:00. INDICATIONS: KIDNEY STONES FINDINGS: No change in the location or appearance of the small punctate stone overlying the left kidney. There are no dilated loops of bowel to suggest obstruction. There are no masses or abnormal calcifications. There is no evidence of free air. No acute osseous abnormalities are present. CONCLUSION: Left renal lithiasis. Javi Francois D.O. Dictated by: Javi Francois D.O. on 05/10/2017 at 14:31 Electronically approved by: Javi Francois D.O. on 05/10/2017 at 14:31 Dictated By: JAVI FRANCOIS DO 1431 Transcribed By: ISRAEL on 05/10/17 1431 COPY TO: GUSTAVO CHESTER MD
[2020-02-13 09:40] LABS: BILIRUBIN,URINE NEGATIVE (NEGATIVE); CLARITY,URINE CLEAR (CLEAR); COLOR,URINE YELLOW (YELLOW); KETONES,URINE NEGATIVE (NEGATIVE); LEUKOCYTE ESTERASE ,URINE NEGATIVE (NEGATIVE); NITRITE,URINE NEGATIVE (NEGATIVE); PROTEIN,URINE DIPSTICK >=300 (NEGATIVE); URINE UROBILINOGEN 0.2 mg/dL (0.2 - 1)
[2020-02-13 09:42] LABS: ALBUMIN 3.5 g/dL (3.5-5.0); ALBUMIN/GLOBULIN RATIO 0.9 (0.8-2.0); ANION GAP 17.1 mmol/L (8-16); CALCIUM 9.5 mg/dL (8.4-10.2); CREATININE, SERUM 1.29 mg/dL (0.57-1.11); POTASSIUM 4.1 mmol/L (3.5-5.1)
[2020-02-13 09:51] LABS: RBC,URINE 0-5 /HPF (0-5); WBC,URINE (MAN) 0-5 /HPF (0-5)
[2020-02-13 09:52] LABS: BACTERIA,URINE MODERATE /HPF; EPITHELIAL CELLS,URINE FEW /LPF; TRANSITIONAL EPI CELLS,URINE FEW
--- NOTE | 2020-02-13 10:13 | Diagnostic Imaging Report ---
EXAM: CT Abdomen and Pelvis WITHOUT intravenous contrast INDICATION: Right flank pain COMPARISON: None. TECHNIQUE: Abdomen and pelvis were scanned utilizing a multidetector helical scanner from the lung base to the pubic symphysis without administration of IV contrast. Coronal and sagittal reformations were obtained. IV CONTRAST: None ORAL CONTRAST: None COMPLICATIONS: None RADIATION DOSE: Total DLP: 834 mGy*cm Dose modulation, iterative reconstruction, and/or weight based adjustment of the mA/kV was utilized to reduce the radiation dose to as low as reasonably achievable. FINDINGS: LOWER THORAX: Scattered coronary artery atherosclerotic calcifications. No lung base consolidation. HEPATOBILIARY: No focal liver lesion. Multiple gallstones in the gallbladder. No CT evidence of cholecystitis. SPLEEN: No splenomegaly. PANCREAS: No focal masses or ductal dilatation. ADRENALS: 1.4 cm left adrenal and 1 cm right adrenal low-density lesions consistent with benign lipid rich adenomas. KIDNEYS/URETERS: No hydronephrosis or hydroureter. 4 mm nonobstructive left upper pole renal calculus. No right renal calculi. 2 cm right upper pole exophytic simple cyst. No solid renal mass lesions. PELVIC ORGANS/BLADDER: Unremarkable. PERITONEUM / RETROPERITONEUM: No free air or fluid. LYMPH NODES: No lymphadenopathy. VESSELS: Scattered atherosclerotic calcifications of the nonaneurysmal abdominal aorta and major branches. GI TRACT: Diverticulosis without CT evidence of diverticulitis. No abnormal bowel thickening. No bowel obstruction. Normal appendix. BONES AND SOFT TISSUES: No acute osseous injury. No suspicious lytic or blastic lesions. Minimal retrolisthesis at L1-L2. IMPRESSION: Multiple gallstones in the gallbladder without CT evidence of cholecystitis. 4 mm nonobstructive left upper pole renal calculus. No right urinary calculi. No hydronephrosis or hydroureter. Diverticulosis without CT evidence of diverticulitis. Signed by: Iftikhar Mulligan MD on 02/13/2020 10:09 AM
--- NOTE | 2020-02-13 11:21 | Diagnostic Imaging Report ---
EXAM: Right upper quadrant abdominal ultrasound INDICATION: Right upper quadrant pain COMPARISON: CT abdomen and pelvis of earlier the same day TECHNIQUE: Transverse and longitudinal images of the right upper quadrant abdomen were obtained FINDINGS: Liver: Size: 18.1 cm in the right midclavicular line, normal Appearance: Increased echogenicity, smooth contour Mass: No focal masses Gallbladder: Multiple shadowing stones in the gallbladder. No gallbladder wall thickening, distention, or pericholecystic fluid. Negative sonographic Ortega's sign. Gallbladder wall measures 3 mm. Bile Ducts: Intrahepatic Ducts: No dilatation Extrahepatic Ducts: Common bile duct measures 3 mm Pancreas: Visualized portions of the pancreatic head, neck and proximal body are normal. Kidney: The right kidney measures 12.0 cm without evidence of hydronephrosis or stone. 2.6 cm anechoic right renal cyst. Vessels: Aorta: Visualized portions are normal Inferior Vena Cava: Visualized portions are normal Main Portal Vein: 1.1 cm, normal size with hepatopetal flow. Free Fluid: No ascites or pleural effusion IMPRESSION: Cholelithiasis without sonographic evidence of cholecystitis. Hepatic steatosis. Simple right renal cyst. Signed by: Iftikhar Mulligan MD on 02/13/2020 11:18 AM
== END 2020-02-13 12:01 | disposition home or self-care (01) ==
LOC: ER 09:32
DX: K80.20 Calculus of gallbladder without cholecystitis without obstruction (principal); R10.9 Unspecified abdominal pain; M54.5 Low back pain; I10 Essential (primary) hypertension
CPT/HCPCS: 36415; 74176; 76705; 80053; 81001; 83690; 85025; 87086; 99284; J2405; J3010; J7030